=== PATIENT | female | born 1965 | race Caucasian/White ===

== ENCOUNTER 2018-10-28 08:20 | Emergency (ER) | payer OTHER ==
[~2018-10-28] VITALS: Ht 152.4 cm; Wt 77.1 kg
[2018-10-28] MEDS ORDERED: ROXICODONE30 M1 PO (08:37)
[2018-10-28 08:52] LABS: ABSOLUTE LYMPHOCYTES 1.6 thou/uL (0.8-5.3); ABSOLUTE MONOCYTES 0.4 thou/uL (0.0-1.2); ABSOLUTE NEUTROPHILS 3.4 thou/uL (1.6-8.1); BASOPHILS 0.6 %; EOSINOPHILS 0.9 %; HEMATOCRIT 33.4 % (37.0-47.0); HEMOGLOBIN 10.9 gm/dL (12.0-15.0); LYMPHOCYTES 29.2 %; MCH 26.1 pg (26.0-34.0); MCHC 32.8 g/dL (28.0-37.0); MCV 79.8 fL (80.0-100.0); MONOCYTES 7.2 %; MPV 7.6 fl. (7.2-11.1); NUCLEATED RBCS 0 /100WBC; PLATELET COUNT* 204 thou/uL (150-400); POLYS 62.1 %; RBC 4.19 mil/uL (4.20-5.00); RDW-CV 17.4 % (10.5-14.5); WBC 5.4 thou/uL (4.0-11.0)
[2018-10-28 09:02] LABS: APTT 23.8 Seconds (25.0-31.3); INR 0.9; PROTIME 9.6 Seconds (9.20-11.50)
[2018-10-28] MEDS ORDERED: PERCOCET 5-3251 EACH PO (10:08)
[2018-10-28] MEDS ORDERED: ZOFRAN ODT4 MG SUBLING (10:08)
[2018-10-28] MEDS ORDERED: PREDNISONE 20 M20 M1 PO (10:08)
[2018-10-28 10:27] VITALS: BP 140/77
--- NOTE | 2018-10-28 11:20 | EKG ---
[place] [address] ELECTROCARDIOGRAM REPORT Name: HILDATAYLOR A Room: [facility]#: [id number] Admission: 10/28/18 Attend Phys: Discharge: 10/28/18 Date of : 63 Report #: [id number] THIS REPORT FOR: //name// [facility] ED Test Date: 2018-10-28 Test Time: 08:26:27 Pat Name: TAYLOR STEVENS Department: Room: Gender: F Disability Insurance Hearing Officer: Ester PERDOMO : 1965 Requested By: Alex Reardon Order Number: [id number] MD: Jaquan Quinn Measurements Intervals [place] Rate: 120 P: 84 CA: 129 QRS: 78 QRSD: 87 T: 52 QT: 321 QTc: 454 Interpretive Statements Sinus tachycardia Borderline ST depression, diffuse leads Baseline wander in lead(s) V1,V2,V3,V4,V5,V6 No previous ECG available for comparison Electronically Signed On 10-28-2018 11:20:02 CDT by Jaquan Quinn [email or web address] <ELECTRONICALLY SIGNED> By: Jaquan Quinn MD, [facility] 10/28/18 1120 0826 Jaquan Quinn MD, [facility] /EPI
== END 2018-10-28 10:27 | disposition home or self-care (01) ==
LOC: M.ERS 08:20
PROVIDERS: Family Medicine
DX: J44.1 Chronic obstructive pulmonary disease with (acute) exacerbation (principal); G89.29 Other chronic pain; E11.9 Type 2 diabetes mellitus without complications; E78.00 Pure hypercholesterolemia, unspecified; F17.210 Nicotine dependence, cigarettes, uncomplicated; Z88.0 Allergy status to penicillin; Z88.6 Allergy status to analgesic agent; Z88.8 Allergy status to other drugs, medicaments and biological substances

== ENCOUNTER 2018-10-31 13:00 | Emergency (ER) | payer OTHER ==
[~2018-10-31] VITALS: Ht 152.4 cm; Wt 77.1 kg
[~2018-10-31 13:00] MED LIST: PERCOCET 5-3251 EACH PO; PREDNISONE 20 M20 M1 PO; ROXICODONE30 M1 PO; ZOFRAN ODT4 MG SUBLING
[2018-10-31 13:20] LABS: URINE BLOOD 3+ (Negative); URINE CLARITY CLEAR; URINE COLOR YELLOW; URINE GLUCOSE-RANDOM TRACE (Negative); URINE KETONES TRACE (Negative); URINE LEUKOCYTES-REFLEX NEGATIVE (Negative); URINE NITRITE-REFLEX NEGATIVE (Negative); URINE PROTEIN 1+ (Negative); URINE SPECIFIC GRAVITY >= 1.030 (1.005-1.030); URINE UROBILINOGEN 0.2 E.U./dl (0.2-1.0)
[2018-10-31 13:21] LABS: ICTOTEST (BILI CONFIRMATORY) Negative (Negative); URINE BILIRUBIN 1+ (Negative)
[2018-10-31 13:28] LABS: BACTERIA-REFLEX 1-9 Few /HPF (None Seen); CASTS None Seen /LPF (None Seen); CRYSTALS None Seen /LPF (None Seen); SQUAMOUS NONE SEEN /LPF (0-3); URINE RBC >20 Many /HPF (0-2); URINE WBC-REFLEX >25 Many /HPF (0-5)
[2018-10-31 13:34] LABS: ABSOLUTE BASOPHILS 0.1 thou/uL (0.0-0.2); ABSOLUTE EOSINOPHILS 0.1 thou/uL (0.0-0.7); ABSOLUTE LYMPHOCYTES 2.6 thou/uL (0.8-5.3); ABSOLUTE MONOCYTES 0.5 thou/uL (0.0-1.2); ABSOLUTE NEUTROPHILS 4.4 thou/uL (1.6-8.1); BASOPHILS 0.7 %; EOSINOPHILS 1.2 %; HEMATOCRIT 33.2 % (37.0-47.0); HEMOGLOBIN 10.6 gm/dL (12.0-15.0); LYMPHOCYTES 33.5 %; MCH 25.5 pg (26.0-34.0); MCHC 31.8 g/dL (28.0-37.0); MCV 80.3 fL (80.0-100.0); MPV 7.3 fl. (7.2-11.1); NUCLEATED RBCS 0 /100WBC; PLATELET COUNT* 270 thou/uL (150-400); POLYS 57.6 %; RBC 4.14 mil/uL (4.20-5.00); WBC 7.7 thou/uL (4.0-11.0)
[2018-10-31 13:43] LABS: CALCIUM 8.7 mg/dL (8.5-10.1); CREATININE 1.2 mg/dL (0.6-1.3); POTASSIUM 4.7 mmol/L (3.5-5.1)
[2018-10-31 13:47] LABS: ALBUMIN 3.7 g/dL (3.4-5.0); TOTAL BILIRUBIN 0.3 mg/dL (<0.1-1.0); TOTAL PROTEIN 7.1 g/dL (6.4-8.2)
[2018-10-31] MEDS ORDERED: CIPROFLOXACIN500 M1 PO (13:56)
[2018-10-31 14:15] VITALS: BP 119/60
== END 2018-10-31 14:15 | disposition home or self-care (01) ==
LOC: M.ERS 13:00
PROVIDERS: Family Medicine
DX: N39.0 Urinary tract infection, site not specified (principal); G89.29 Other chronic pain; J44.9 Chronic obstructive pulmonary disease, unspecified; E11.9 Type 2 diabetes mellitus without complications; E78.00 Pure hypercholesterolemia, unspecified; F17.210 Nicotine dependence, cigarettes, uncomplicated; Z88.0 Allergy status to penicillin; Z88.8 Allergy status to other drugs, medicaments and biological substances

== ENCOUNTER 2018-11-05 14:03 | Emergency (ER) | payer OTHER ==
[~2018-11-05] VITALS: Ht 149.9 cm; Wt 77.1 kg
[~2018-11-05 14:03] MED LIST changes: +CIPROFLOXACIN500 M1 PO
[2018-11-05] MEDS ORDERED: PERCOCET 5-3251 EACH PO (14:24)
[2018-11-05] MEDS ORDERED: PREDNISONE 20 M20 M1 PO (14:32)
[2018-11-05 14:44] VITALS: BP 137/84
== END 2018-11-05 14:46 | disposition home or self-care (01) ==
LOC: M.ERS 14:03
DX: R10.84 Generalized abdominal pain (principal); G89.29 Other chronic pain; F17.210 Nicotine dependence, cigarettes, uncomplicated; J44.9 Chronic obstructive pulmonary disease, unspecified; E11.9 Type 2 diabetes mellitus without complications; E78.00 Pure hypercholesterolemia, unspecified; Z88.6 Allergy status to analgesic agent; Z88.0 Allergy status to penicillin; Z88.8 Allergy status to other drugs, medicaments and biological substances

== ENCOUNTER 2018-11-09 10:43 | Emergency (ER) | payer OTHER ==
[~2018-11-09] VITALS: Ht 149.9 cm; Wt 69.4 kg
[2018-11-09 11:00] LABS: URINE BILIRUBIN NEGATIVE (Negative); URINE BLOOD NEGATIVE (Negative); URINE CLARITY CLEAR; URINE COLOR YELLOW; URINE GLUCOSE-RANDOM NEGATIVE (Negative); URINE KETONES NEGATIVE (Negative); URINE LEUKOCYTES-REFLEX NEGATIVE (Negative); URINE NITRITE-REFLEX NEGATIVE (Negative); URINE PROTEIN 1+ (Negative); URINE SPECIFIC GRAVITY 1.015 (1.005-1.030); URINE UROBILINOGEN 0.2 E.U./dl (0.2-1.0)
[2018-11-09 11:07] LABS: ABSOLUTE EOSINOPHILS 0.1 thou/uL (0.0-0.7); ABSOLUTE MONOCYTES 0.6 thou/uL (0.0-1.2); ABSOLUTE NEUTROPHILS 3.9 thou/uL (1.6-8.1); BASOPHILS 0.5 %; EOSINOPHILS 0.9 %; HEMATOCRIT 35.9 % (37.0-47.0); HEMOGLOBIN 11.3 gm/dL (12.0-15.0); LYMPHOCYTES 30.8 %; MCH 25.2 pg (26.0-34.0); MCHC 31.4 g/dL (28.0-37.0); MCV 80.4 fL (80.0-100.0); MONOCYTES 9.5 %; MPV 7.1 fl. (7.2-11.1); NUCLEATED RBCS 0 /100WBC; PLATELET COUNT* 294 thou/uL (150-400); POLYS 58.3 %; RBC 4.47 mil/uL (4.20-5.00); RDW-CV 17.1 % (10.5-14.5); WBC 6.6 thou/uL (4.0-11.0)
[2018-11-09 11:14] LABS: CALCIUM 9.2 mg/dL (8.5-10.1); CREATININE 0.7 mg/dL (0.6-1.3); POTASSIUM 4.1 mmol/L (3.5-5.1)
[2018-11-09 11:19] LABS: ALBUMIN 3.6 g/dL (3.4-5.0); TOTAL BILIRUBIN 0.2 mg/dL (<0.1-1.0); TOTAL PROTEIN 7.8 g/dL (6.4-8.2)
[2018-11-09] MEDS ORDERED: CITRATE OF MAG296 ML PO (12:19)
[2018-11-09] MEDS ORDERED: MIRALAX17 GM PO (12:19)
[2018-11-09 12:31] VITALS: BP 149/86
== END 2018-11-09 12:32 | disposition home or self-care (01) ==
LOC: M.ERS 10:43
PROVIDERS: Physician Assistant
DX: K59.00 Constipation, unspecified (principal); F17.210 Nicotine dependence, cigarettes, uncomplicated; J44.9 Chronic obstructive pulmonary disease, unspecified; E11.9 Type 2 diabetes mellitus without complications; E78.00 Pure hypercholesterolemia, unspecified; Z88.6 Allergy status to analgesic agent; Z88.0 Allergy status to penicillin; Z88.8 Allergy status to other drugs, medicaments and biological substances